=== PATIENT | female | born 1995 | race Caucasian/White ===

== ENCOUNTER 2018-03-27 05:30 | Inpatient (IN) | payer BC ==
[2018-03-27] MEDS ORDERED: METHYLERGONOVINE MALEATE 0.2 MG/ML SOL IM PRN (05:48)
[2018-03-27] MEDS ORDERED: CARBOPROST 250 MCG/ML SOL IM PRN (05:48)
[2018-03-27] MEDS ORDERED: FENTANYL 100MCG/2ML SOL IV PRN (05:48)
[2018-03-27] MEDS ORDERED: MEPIVACAINE HCL 1% MPF 30 ML/VIAL SOL INFIL PRN (05:48)
[2018-03-27] MEDS ORDERED: SODIUM CHLORIDE 0.9% FLUSH 10 ML SOL IV PRN (05:48)
[2018-03-27] MEDS ORDERED: LACTATED RINGERS 1,000 ML IV PRN (05:48)
[2018-03-27] MEDS ORDERED: OXYTOCIN 10000 MU/ML SOL IM PRN (05:48)
[2018-03-27 07:27] LABS: HEMATOCRIT 36 % (35-47); HEMOGLOBIN 11.4 gm/dl (12.0-15.5); MEAN CORPUSCULAR HEMOGLOBIN 26.8 pg (27.0-32.0); MEAN CORPUSCULAR HGB CONC 31.9 gm/dl (32.0-36.0); MEAN CORPUSCULAR VOLUME 84 fL (81-99)
[2018-03-27] MEDS: SODIUM CHLORIDE 0.9% FLUSH 10 ML SOL IV SCH ×2 (07:30→17:40)
[2018-03-27] MEDS ORDERED: NALOXONE HYDROCHLORIDE 0.4 MG/ML SOL IV PRN (08:00)
[2018-03-27] MEDS ORDERED: EPHEDRINE SULFATE 50 MG/ML SOL IV PRN (08:00)
[2018-03-27] MEDS ORDERED: DIPHENHYDRAMINE 50 MG/ML SOL IV PRN (08:00)
[2018-03-27] MEDS ORDERED: LACTATED RINGERS 1,000 ML IV SCH (08:00)
[2018-03-27] MEDS ORDERED: NALBUPHINE HCL 20 MG/ML SOL IV PRN (08:00)
[2018-03-27 09:29] LABS: BAND NEUTROPHILS % (MANUAL) 2 %; BASOPHILS % (MANUAL) 0 % (0-3); EOSINOPHILS % (MANUAL) 1 % (0-9); LYMPHOCYTES % (MANUAL) 29 % (10-50); MONOCYTES % (MANUAL) 10 % (0-12); NEUTROPHILS % (MANUAL) 58 % (37-80); NORMAL RBCS NORMAL RBCS
[2018-03-27] MEDS: LACTATED RINGERS 1,000 ML IV SCH ×2 (11:35→11:55)
[2018-03-27] MEDS ORDERED: FENTANYL 250 MCG/ 5ML SOL ONE (11:56)
[2018-03-27] MEDS ORDERED: LIDOCAINE HCL 2% MPF 10 ML SOL ONE (11:57)
[2018-03-27] MEDS ORDERED: ROPIVACAINE HYDROCHLORIDE 5 MG/ML SOL ONE (11:57)
[2018-03-27] MEDS ORDERED: ALUMINUM/MAGNESIUM 30 ML SUS PO PRN (18:13)
[2018-03-27] MEDS ORDERED: FLEET ENEMA PR PRN (20:56)
[2018-03-27] MEDS ORDERED: METHYLERGONOVINE MALEATE 0.2 MG TAB PO PRN (20:56)
[2018-03-27] MEDS ORDERED: BISACODYL 10 MG SUP PR PRN (20:56)
[2018-03-27] MEDS ORDERED: BENZOCAINE/MENTHOL 1 SPR TOP PRN (20:56)
[2018-03-27] MEDS ORDERED: APAP/HYDROCODONE 325/5 TAB PO PRN (20:56)
[2018-03-27] MEDS ORDERED: TEMAZEPAM 15MG 15 MG CAP PO PRN (20:56)
[2018-03-27] MEDS ORDERED: WITCH HAZEL 1 EA PAD TOP PRN (20:56)
[2018-03-27] MEDS: DOCUSATE SODIUM 100 MG SGL PO SCH (21:53)
[2018-03-27] MEDS: IBUPROFEN 600 MG TAB PO PRN (21:53)
[2018-03-28] MEDS: SODIUM CHLORIDE 0.9% FLUSH 10 ML SOL IV SCH ×2 (03:43→11:44)
[2018-03-28] MEDS ORDERED: ROPIVACAINE HYDROCHLORIDE 5 MG/ML SOL ONE (07:03)
[2018-03-28] MEDS ORDERED: FENTANYL 250 MCG/ 5ML SOL ONE (07:03)
[2018-03-28] MEDS ORDERED: LIDOCAINE HCL 2% MPF 10 ML SOL ONE (07:04)
[2018-03-28] MEDS: IBUPROFEN 600 MG TAB PO PRN ×2 (09:02→14:16)
[2018-03-28] MEDS: DOCUSATE SODIUM 100 MG SGL PO SCH ×2 (09:02→20:36)
[2018-03-29 09:43] VITALS: BP 106/74; PULSE 106; RESP 20; TEMP 98.7; O2SAT 97
[2018-03-29] MEDS: DOCUSATE SODIUM 100 MG SGL PO SCH (10:03)
== END 2018-03-29 12:10 | disposition home or self-care (01) | DRG 560 ==
LOC: OB 05:30 → OBSVTOIN 05:30 → OB 03-28 11:55
PROVIDERS: ADMIT Family Medicine; ATTEND Family Medicine
PROC: 10E0XZZ Delivery of Products of Conception, External Approach (ICD-10-PCS; principal; 2018-03-27)
PROC: 0KQM0ZZ Repair Perineum Muscle, Open Approach (ICD-10-PCS; 2018-03-27)
DX: O80 Encounter for full-term uncomplicated delivery (principal); O69.81X0 Labor and delivery complicated by cord around neck, without compression, not applicable or unspecified; Z3A.41 41 weeks gestation of pregnancy; Z37.0 Single live birth
CPT/HCPCS: 36415; 59025; 85007; 85018; 85027; 94762; J0670; J2590; J2795; J3010; A9270-GY